=== PATIENT | male | born 1990 | race Caucasian/White ===

== ENCOUNTER 2020-03-23 15:22 | Outpatient (CLI) | payer BC, SELFPAY ==
[2020-03-23 16:43] LABS: Hemoglobin A1C 5.4 % (<5.7)
[2020-03-23 17:59] LABS: Vitamin D 25 Hydroxy 30.4 ng/mL
== END 2020-03-23 15:23 | disposition home or self-care (01) ==
LOC: ANHLAB 15:24
PROVIDERS: PCP Internal Medicine; Visit Provider Internal Medicine
DX: Z00.00 Encounter for general adult medical examination without abnormal findings (principal); Z13.29 Encounter for screening for other suspected endocrine disorder
CPT/HCPCS: 36415; 82306; 82607; 83036; 84443

== ENCOUNTER → 2020-06-25 06:57 | Outpatient (CLI) | payer BC, SELFPAY ==
[2020-06-26 19:48] LABS: SARS-CoV-2 RNA PCR Negative
== END ==
PROVIDERS: PCP Internal Medicine; Visit Provider Internal Medicine
DX: Z20.822 Contact with and (suspected) exposure to COVID-19 (principal); R68.89 Other general symptoms and signs
CPT/HCPCS: C9803; U0003; U0005